=== PATIENT | female | born 1960 | race Two or more races ===

== ENCOUNTER 2021-06-11 06:31 | Day surgery (SDC) | payer OTHER ==
[~2021-06-11 06:31] MED LIST: ADULT LOW DOSE81 M1 PO; COD LIVER OIL1 EACH PO; COZAAR50 MG PO; FOLIC ACID1 MG PO; HUMIRA40 MG/0.2 SQ; METHOTREXATE2.5 MG PO; OMEPR PO; PNEU16DI2; PREVACID30 MG PO; ULTRACET PO
[2021-06-11] MEDS ORDERED: POLY119PG PO (12:54)
[2021-06-11] MEDS ORDERED: PERCOCET 5-3251 EACH PO (12:54)
[2021-06-11] MEDS ORDERED: NEURONTIN600 M1 PO (12:54)
== END 2021-06-11 16:00 | disposition home or self-care (01) ==
LOC: CIR.AMB 06:31
PROVIDERS: ATTEND Surgery
DX: K43.2 Incisional hernia without obstruction or gangrene (principal)

== ENCOUNTER 2025-02-28 08:57 | Outpatient (CLI) | payer OTHER ==
[~2025-02-28 08:57] MED LIST changes: +NEURONTIN600 M1 PO; +PERCOCET 5-3251 EACH PO; +POLY119PG PO
== END 2025-02-28 12:41 | disposition home or self-care (01) ==
LOC: TOM 08:57
PROVIDERS: ATTEND Surgery
DX: K43.2 Incisional hernia without obstruction or gangrene (principal)
CPT/HCPCS: 74177; Q9965